=== PATIENT | male | born 1990 | race Caucasian/White ===

== ENCOUNTER 2017-08-08 14:37 | Emergency (ER) | payer OTHER ==
[~2017-08-08] VITALS: Ht 175.2 cm; Wt 68.0 kg
[~2017-08-08 14:37] MED LIST: CIPROFLOXACIN500 MG PO; CYCLOBENZAPRINE10 MG PO; LAMICTAL100 MG PO; Motrin,Rufen800 MG PO; TOPAMAX200 MG PO; VIBRAMYCIN100 MG PO; VICODIN 5/500 505 MG PO; ZOFRAN ODT4 MG SL
[2017-08-08 14:46] VITALS: BP 114/66
[2017-08-08] MEDS ORDERED: CEFADROXIL500 M1 PO (14:55)
[2017-08-08] MEDS ORDERED: ANAPROX DS550 MG PO (14:55)
[2017-08-08] MEDS ORDERED: BACTRIM DS PO (14:55)
== END 2017-08-08 17:01 | disposition home or self-care (01) ==
LOC: ED 14:37
DX: S60.561A Insect bite (nonvenomous) of right hand, initial encounter (principal); L08.9 Local infection of the skin and subcutaneous tissue, unspecified; W57.XXXA Bitten or stung by nonvenomous insect and other nonvenomous arthropods, initial encounter; Y93.89 Activity, other specified; Y92.89 Other specified places as the place of occurrence of the external cause; Y99.8 Other external cause status; Z79.899 Other long term (current) drug therapy

== ENCOUNTER 2017-08-27 13:08 | Inpatient (IN) | payer OTHER ==
[~2017-08-27] VITALS: Ht 177.8 cm; Wt 66.5 kg
[~2017-08-27 13:08] MED LIST changes: +ANAPROX DS550 MG PO; +BACTRIM DS PO; +CEFADROXIL500 M1 PO
[2017-08-27 16:00] VITALS: BP 106/59
--- NOTE | 2017-08-28 12:15 | NUR ---
26 year old MALE admitted to room # 530 for stabilization. Reports an addiction to IV HEROIN last used 22 hours prior to admission. Compliant with admission procedure. ASSESSMENT COMPLETE. SKIN INTACT WITH NO WOUNDS. REFUSING FLU VACCINATION. WILL VERIFY [facility] MEDICATIONS WITH [facility].
[2017-08-28 12:30] VITALS: BP 115/71
--- NOTE | 2017-08-28 13:30 | NUR ---
CALLED DR DOWNS AND INFORMED HIM THAT PTS HOME MEDICATIONS WERE VERIFIED WITH THE PHARMACIST AT [facility]. I EXPLAINED THAT PT HAS A HX OF SEIZURES AND STOPPED TAKING HIE ANTICONVULSANTS 3 MONTHS AGO. PT STATES HIS LAST SEIZURE WAS OCTOBER 2016. NO NEW ORDERS.
[2017-08-28 13:50] LABS: BASO # 0.1 10*3/uL (0.0-0.1); BASO % 0.7 % (0.0-1.0); EOS # 0.4 10*3/uL (0.0-0.4); EOS % 5.1 % (1.0-4.0); HEMATOCRIT 43.5 % (42.0-52.0); HEMOGLOBIN 14.4 g/dl (14.0-18.0); LYMPH # 2.1 10*3/uL (1.3-4.4); LYMPH % 29.3 % (27.0-41.0); MEAN CORPUSCULAR HGB 30.1 pg (27.0-31.0); MEAN CORPUSCULAR HGB CONC 33.1 g/dl (33.0-37.0); MEAN PLATELET VOLUME 10.8 fl (9.6-12.3); MONO # 0.4 10*3/uL (0.1-1.0); MONO % 5.5 % (3.0-9.0); NEUT # 4.3 10*3/uL (2.3-7.9); NEUT % 59.3 % (47.0-73.0); PLATELET COUNT AUTOMATED 249 10*3/uL (130-400); RED BLOOD COUNT 4.78 10*6/uL (4.50-5.90); RED CELL DISTRI WIDTH 14.6 % (0-14.5); WHITE BLOOD COUNT 7.2 10*3/uL (4.8-10.8)
[2017-08-28 14:04] LABS: ALBUMIN 3.8 gm/dl (3.1-4.5); ALKALINE PHOSPHATASE 88 U/L (45-117); BUN 9 mg/dl (7-24); CHLORIDE 105 mmol/L (98-107); CREATININE 0.76 mg/dL (0.70-1.30); POTASSIUM 4.1 mmol/L (3.5-5.1); SGOT/AST 37 IU/L (3-35); SGPT/ALT 66 U/L (12-78); SODIUM 140 mmol/L (136-145); TOTAL PROTEIN 7.1 gm/dL (6.4-8.2)
[2017-08-28 14:05] LABS: BILIRUBIN NEGATIVE (NEGATIVE); BLOOD NEGATIVE (NEGATIVE); CLARITY CLEAR (CLEAR); COLOR YELLOW (YELLOW); GLUCOSE NEGATIVE (NEGATIVE); KETONE NEGATIVE (NEGATIVE); LEUKO ESTERASE NEGATIVE (NEGATIVE); NITRITE NEGATIVE (NEGATIVE); PH 8.5 (5.0-9.0); SPECIFIC GRAVITY 1.015 (1.005-1.030)
[2017-08-28 14:09] LABS: ETHYL ALCOHOL < 3.0 mg/dl (<3)
[2017-08-28 14:11] LABS: URINE AMPHETAMINES < 1000 (1000ng/ml); URINE BARBITURATES < 200 (200ng/ml); URINE BENZODIAZEPINES < 200 (200ng/ml); URINE CANNABINOIDS (THC) < 50 (50ng/ml); URINE COCAINE < 300 (300ng/ml); URINE METHADONE < 300 (300ng/ml); URINE OPIATES < 300 (300ng/ml)
[2017-08-28 14:14] LABS: URINE PHENCYCLIDINE < 25 (25ng/ml)
[2017-08-28 14:24] LABS: MUCOUS TRACE; RBC 0-2 rbc/hpf (0-2); WBC 0-2 wbc/hpf (0-5)
[2017-08-28 16:00] VITALS: BP 112/67
[2017-08-29] VITALS: BP 103/58
--- NOTE | 2017-08-29 00:58 | NUR ---
PATIENT RESTING IN BED WATCHING TV. NO SIGNS OR SYMPTOMS OF DISTRESS NOTED. DENIES COMPLAINTS OF PAIN OR DISCOMFORT. WILL CONTINUE TO MONITOR. CALL LIGHT IN REACH.
[2017-08-29 08:00] VITALS: BP 100/69
--- NOTE | 2017-08-29 10:21 | NUR ---
REQUIP 0.5 MG AND ROBAXIN 750 MG GIVEN FOR C/O RESTLESS, ACHY LEGS.PT VOICES NO OTHER S/S OF WITHDRAWAL AT THIS TIME.RESPS EASY ON RA ,SPO2 1OO%.STABLE AT THIS TIME. CALL LIGHT IN REACH.
--- NOTE | 2017-08-29 14:09 | NUR ---
Patient resting. Responding to scheduled medications with fewer complaints of pain and anxiety.
--- NOTE | 2017-08-29 14:14 | NUR ---
BENTYL GIVEN PER PT REQUEST FOR STOMACH CRAMPS.
[2017-08-29 16:00] VITALS: BP 99/51
--- NOTE | 2017-08-29 22:18 | NUR ---
PATIENT RESTING IN BED ON IPAD. DENEIES COMPLAINTS OF PAIN OR DISCOMFORT. WILL CONTINUE TO MONITOR. CALL LIGHT IN REACH.
[2017-08-30] VITALS: BP 103/53
--- NOTE | 2017-08-30 07:56 | NUR ---
PT IN BED, WATCHING TV. PT DENIES ANY CHEST PAIN, SOB, NAUSEA, VOMITING, DIARRHEA, MUSCLE CRAMPS/SPASMS AT THIS TIME. LUNGS DIMINISHED WITH NO EDEMA NOTED.
[2017-08-30 08:00] VITALS: BP 92/48
--- NOTE | 2017-08-30 10:05 | NUR ---
PT UP, AMBULATING IN ROOM. DENIES N/V/D. REQUESTED MEDICATION FOR RESTLESS LEGS. SEE MAR.
--- NOTE | 2017-08-30 10:54 | NUR ---
D/C PLANNING: PATIENT WILL FOLLOW UP WITH [facility] FOR HIS AFTERCARE PLAN. KIMBERLY HENRY B.A. INTAKE CORRDINATOR
--- NOTE | 2017-08-30 11:01 | NUR ---
PER PT, REQUIP WAS EFFECTIVE FOR RESTLESS LEGS.
--- NOTE | 2017-08-30 13:39 | NUR ---
PT IN BED, AMBULATING WITHIN ROOM.
[2017-08-30 16:00] VITALS: BP 97/49
--- NOTE | 2017-08-30 17:30 | NUR ---
PT IN BED, WATCHING TV. PT DENIES PAIN OF ANY KIND, DENIES N/V/D. LUNGS CLEAR AND DIMINISHED. NO EDEMA NOTED. TOLERATED MEDICATION WELL DURING ADMIN.
[2017-08-30 20:00] VITALS: BP 111/55
--- NOTE | 2017-08-30 22:05 | NUR ---
Nurse asked patient if he needed any PRN medications and he said "no, I don't need anything."
[2017-08-31] VITALS: BP 105/60
--- NOTE | 2017-08-31 01:40 | NUR ---
24 HR chart check completed.
--- NOTE | 2017-08-31 06:11 | NUR ---
Asked patient again if he needed any PRN medications and he said "no,I don't need anything right now."
[2017-08-31 06:20] LABS: BASO # 0.1 10*3/uL (0.0-0.1); EOS # 0.8 10*3/uL (0.0-0.4); EOS % 13.3 % (1.0-4.0); HEMATOCRIT 38.1 % (42.0-52.0); HEMOGLOBIN 12.6 g/dl (14.0-18.0); LYMPH # 2.5 10*3/uL (1.3-4.4); LYMPH % 41.1 % (27.0-41.0); MEAN CELL VOLUME 92.3 fl (80.0-94.0); MEAN CORPUSCULAR HGB 30.5 pg (27.0-31.0); MEAN CORPUSCULAR HGB CONC 33.1 g/dl (33.0-37.0); MEAN PLATELET VOLUME 11.1 fl (9.6-12.3); MONO # 0.6 10*3/uL (0.1-1.0); MONO % 10.2 % (3.0-9.0); NEUT # 2.1 10*3/uL (2.3-7.9); NEUT % 34.2 % (47.0-73.0); PLATELET COUNT AUTOMATED 182 10*3/uL (130-400); RED BLOOD COUNT 4.13 10*6/uL (4.50-5.90); RED CELL DISTRI WIDTH 14.5 % (0-14.5); WHITE BLOOD COUNT 6.2 10*3/uL (4.8-10.8)
[2017-08-31 06:47] LABS: CREATININE 0.65 mg/dL (0.70-1.30)
[2017-08-31 08:00] VITALS: BP 116/72
[2017-08-31] MEDS ORDERED: ZOFRAN 4 MG ED2 TAB PO (09:50)
[2017-08-31] MEDS ORDERED: METHOCARBAMOL750 M1 PO (09:50)
[2017-08-31] MEDS ORDERED: ATARAX,VISTARIL50 MG PO (09:50)
--- NOTE | 2017-08-31 10:34 | NUR ---
Discharge instructions reviewed with patient/family. Patient receptive and verbalizes understanding. Follow-up care arranged. Written instructions given to patient/family. ANDERSON RODRIGUEZ
== END 2017-08-31 10:34 | disposition home or self-care (01) | DRG 897 ==
LOC: 4E 13:08 → 5E 08-28 11:07
PROVIDERS: Student in an Organized Health Care Education/Training Program; ADMIT Internal Medicine
DX: F11.23 Opioid dependence with withdrawal (principal); F41.9 Anxiety disorder, unspecified; G40.909 Epilepsy, unspecified, not intractable, without status epilepticus; G25.81 Restless legs syndrome; Z71.6 Tobacco abuse counseling; Z72.0 Tobacco use; Z91.14 Patient's other noncompliance with medication regimen; Z82.49 Family history of ischemic heart disease and other diseases of the circulatory system; Z79.899 Other long term (current) drug therapy

== ENCOUNTER 2017-11-28 13:50 | Inpatient (IN) | payer OTHER ==
[~2017-11-28] VITALS: Ht 175.3 cm; Wt 75.8 kg
[~2017-11-28 13:50] MED LIST changes: +ATARAX,VISTARIL50 MG PO; +METHOCARBAMOL750 M1 PO; +ZOFRAN 4 MG ED2 TAB PO
[2017-11-28 15:21] LABS: BASO # 0.1 10*3/uL (0.0-0.1); BASO % 0.6 % (0.0-1.0); EOS # 0.4 10*3/uL (0.0-0.4); EOS % 4.6 % (1.0-4.0); HEMATOCRIT 47.2 % (42.0-52.0); HEMOGLOBIN 15.8 g/dl (14.0-18.0); LYMPH # 2.3 10*3/uL (1.3-4.4); LYMPH % 29.3 % (27.0-41.0); MEAN CELL VOLUME 91.1 fl (80.0-94.0); MEAN CORPUSCULAR HGB 30.5 pg (27.0-31.0); MEAN CORPUSCULAR HGB CONC 33.5 g/dl (33.0-37.0); MEAN PLATELET VOLUME 10.7 fl (9.6-12.3); MONO # 0.7 10*3/uL (0.1-1.0); MONO % 8.5 % (3.0-9.0); NEUT # 4.5 10*3/uL (2.3-7.9); NEUT % 56.9 % (47.0-73.0); PLATELET COUNT AUTOMATED 281 10*3/uL (130-400); RED BLOOD COUNT 5.18 10*6/uL (4.50-5.90); RED CELL DISTRI WIDTH 13.2 % (0-14.5); WHITE BLOOD COUNT 7.9 10*3/uL (4.8-10.8)
[2017-11-28 15:36] LABS: ALKALINE PHOSPHATASE 99 U/L (45-117); BUN 13 mg/dl (7-24); CHLORIDE 104 mmol/L (98-107); CREATININE 0.89 mg/dL (0.70-1.30); POTASSIUM 3.9 mmol/L (3.5-5.1); SGOT/AST 192 IU/L (3-35); SGPT/ALT 520 U/L (12-78); SODIUM 140 mmol/L (136-145); TOTAL PROTEIN 7.5 gm/dL (6.4-8.2)
[2017-11-28 15:37] LABS: ETHYL ALCOHOL < 3.0 mg/dl (<3)
[2017-11-28 15:59] LABS: BILIRUBIN NEGATIVE (NEGATIVE); BLOOD NEGATIVE (NEGATIVE); CLARITY SL CLOUDY (CLEAR); COLOR YELLOW (YELLOW); GLUCOSE NEGATIVE (NEGATIVE); KETONE TRACE (NEGATIVE); LEUKO ESTERASE NEGATIVE (NEGATIVE); NITRITE NEGATIVE (NEGATIVE); SPECIFIC GRAVITY >= 1.030 (1.005-1.030)
[2017-11-28 16:00] VITALS: BP 115/64
[2017-11-28 16:07] LABS: BACTERIA TRACE; EPITHELIAL CELLS 0-2; MUCOUS TRACE; RBC 0-2 rbc/hpf (0-2); WBC 0-2 wbc/hpf (0-5)
[2017-11-28 16:09] LABS: URINE AMPHETAMINES < 1000 (1000ng/ml); URINE BARBITURATES < 200 (200ng/ml); URINE BENZODIAZEPINES < 200 (200ng/ml); URINE CANNABINOIDS (THC) < 50 (50ng/ml); URINE COCAINE > 300 (300ng/ml); URINE METHADONE < 300 (300ng/ml); URINE OPIATES < 300 (300ng/ml); URINE PHENCYCLIDINE < 25 (25ng/ml)
[2017-11-28 20:00] VITALS: BP 114/66
[2017-11-29] VITALS: BP 103/64
[2017-11-29 08:00] VITALS: BP 94/60
[2017-11-29 16:00] VITALS: BP 109/62
[2017-11-29 20:00] VITALS: BP 120/72
[2017-11-30] VITALS: BP 112/63
[2017-11-30 08:00] VITALS: BP 90/53
[2017-11-30] MEDS ORDERED: ATARAX,VISTARIL50 MG PO (12:18)
[2017-11-30 16:00] VITALS: BP 137/68
[2017-11-30 20:07] VITALS: BP 110/68
[2017-12-01] VITALS: BP 117/70
[2017-12-01 08:00] VITALS: BP 90/51
== END 2017-12-01 09:35 | disposition left against medical advice (07) | DRG 894 ==
LOC: 5E 13:50
PROVIDERS: Internal Medicine
DX: F11.23 Opioid dependence with withdrawal (principal); F14.10 Cocaine abuse, uncomplicated; G40.909 Epilepsy, unspecified, not intractable, without status epilepticus; R10.84 Generalized abdominal pain; R19.5 Other fecal abnormalities; Z53.21 Procedure and treatment not carried out due to patient leaving prior to being seen by health care provider; Z91.14 Patient's other noncompliance with medication regimen; Z82.49 Family history of ischemic heart disease and other diseases of the circulatory system

== ENCOUNTER 2018-02-09 11:53 | Inpatient (IN) | payer MEDICAID ==
[~2018-02-09] VITALS: Ht 175.3 cm; Wt 68.5 kg
[2018-02-09 11:57] VITALS: BP 110/57
[2018-02-09 12:19] LABS: BASO # 0.1 10*3/uL (0.0-0.1); BASO % 0.7 % (0.0-1.0); EOS # 0.4 10*3/uL (0.0-0.4); HEMATOCRIT 42.3 % (42.0-52.0); HEMOGLOBIN 14.6 g/dl (14.0-18.0); LYMPH # 3.2 10*3/uL (1.3-4.4); LYMPH % 35.3 % (27.0-41.0); MEAN CELL VOLUME 89.4 fl (80.0-94.0); MEAN CORPUSCULAR HGB 30.9 pg (27.0-31.0); MEAN CORPUSCULAR HGB CONC 34.5 g/dl (33.0-37.0); MEAN PLATELET VOLUME 10.2 fl (9.6-12.3); MONO # 0.5 10*3/uL (0.1-1.0); MONO % 5.7 % (3.0-9.0); NEUT # 4.9 10*3/uL (2.3-7.9); NEUT % 54.2 % (47.0-73.0); PLATELET COUNT AUTOMATED 269 10*3/uL (130-400); RED BLOOD COUNT 4.73 10*6/uL (4.50-5.90); RED CELL DISTRI WIDTH 12.6 % (0-14.5)
[2018-02-09 12:37] LABS: ALBUMIN 4.1 gm/dl (3.1-4.5); ALKALINE PHOSPHATASE 77 U/L (45-117); BUN 10 mg/dl (7-24); CHLORIDE 101 mmol/L (98-107); CREATININE 0.76 mg/dL (0.70-1.30); POTASSIUM 3.6 mmol/L (3.5-5.1); SGOT/AST 74 IU/L (3-35); SGPT/ALT 141 U/L (12-78); SODIUM 137 mmol/L (136-145); TOTAL PROTEIN 7.5 gm/dL (6.4-8.2)
[2018-02-09 12:43] LABS: ETHYL ALCOHOL < 3.0 mg/dl (<3); TROPONIN I < 0.015 ng/ml (<0.045)
[2018-02-09 12:44] LABS: ACETAMINOPHEN (TYLENOL) < 2.0 ug/ml (10-30)
[2018-02-09 12:57] LABS: BILIRUBIN NEGATIVE (NEGATIVE); BLOOD NEGATIVE (NEGATIVE); CLARITY CLEAR (CLEAR); COLOR YELLOW (YELLOW); GLUCOSE NEGATIVE (NEGATIVE); KETONE NEGATIVE (NEGATIVE); LEUKO ESTERASE NEGATIVE (NEGATIVE); NITRITE NEGATIVE (NEGATIVE); PH 5.5 (5.0-9.0); UROBILINOGEN 0.2 E.U./dl (0.2-1.0)
[2018-02-09 13:04] LABS: URINE AMPHETAMINES < 1000 (1000ng/ml); URINE BARBITURATES < 200 (200ng/ml); URINE BENZODIAZEPINES < 200 (200ng/ml); URINE CANNABINOIDS (THC) < 50 (50ng/ml); URINE COCAINE > 300 (300ng/ml); URINE METHADONE < 300 (300ng/ml); URINE OPIATES > 300 (300ng/ml)
[2018-02-09 13:08] LABS: URINE PHENCYCLIDINE < 25 (25ng/ml)
[2018-02-09 13:20] LABS: MUCOUS 2+; WBC 0-2 wbc/hpf (0-5)
[2018-02-09 13:52] VITALS: BP 99/57
[2018-02-09 14:15] VITALS: BP 106/67
[2018-02-09 16:00] VITALS: BP 107/64
[2018-02-09 20:00] VITALS: BP 129/74
[2018-02-10] VITALS: BP 119/56
[2018-02-10 08:00] VITALS: BP 85/55
[2018-02-10 16:00] VITALS: BP 96/53
[2018-02-10 20:00] VITALS: BP 117/52
[2018-02-10] MEDS ORDERED: TOPAMAX200 MG PO (23:16)
[2018-02-10] MEDS ORDERED: LAMICTAL100 MG PO (23:16)
[2018-02-11] VITALS: BP 104/57; BP 160/62
[2018-02-11 04:00] VITALS: BP 109/59
[2018-02-11 08:00] VITALS: BP 89/55
[2018-02-11 12:00] VITALS: BP 89/46
[2018-02-11 20:00] VITALS: BP 96/52
[2018-02-12] VITALS: BP 96/56
[2018-02-12 06:21] LABS: BASO # 0.1 10*3/uL (0.0-0.1); BASO % 0.9 % (0.0-1.0); EOS # 0.9 10*3/uL (0.0-0.4); EOS % 9.8 % (1.0-4.0); HEMATOCRIT 41.9 % (42.0-52.0); HEMOGLOBIN 13.9 g/dl (14.0-18.0); LYMPH # 3.7 10*3/uL (1.3-4.4); LYMPH % 42.3 % (27.0-41.0); MEAN CELL VOLUME 92.7 fl (80.0-94.0); MEAN CORPUSCULAR HGB 30.8 pg (27.0-31.0); MEAN CORPUSCULAR HGB CONC 33.2 g/dl (33.0-37.0); MEAN PLATELET VOLUME 10.9 fl (9.6-12.3); MONO # 0.6 10*3/uL (0.1-1.0); MONO % 7.2 % (3.0-9.0); NEUT # 3.5 10*3/uL (2.3-7.9); NEUT % 39.5 % (47.0-73.0); PLATELET COUNT AUTOMATED 260 10*3/uL (130-400); RED BLOOD COUNT 4.52 10*6/uL (4.50-5.90); RED CELL DISTRI WIDTH 12.7 % (0-14.5); WHITE BLOOD COUNT 8.8 10*3/uL (4.8-10.8)
[2018-02-12 06:43] LABS: CREATININE 0.98 mg/dL (0.70-1.30)
[2018-02-12 08:00] VITALS: BP 92/53
[2018-02-12] MEDS ORDERED: ATARAX,VISTARIL50 MG PO (11:08)
[2018-02-12] MEDS ORDERED: ZOFRAN 4 MG ED2 TAB PO (11:08)
== END 2018-02-12 11:52 | disposition home or self-care (01) | DRG 897 ==
LOC: ED 11:53 → 5E 13:18 → EDHOLD 13:18 → 5E 13:55
PROVIDERS: Internal Medicine; Nurse Practitioner Family
DX: F11.23 Opioid dependence with withdrawal (principal); F14.10 Cocaine abuse, uncomplicated; G40.909 Epilepsy, unspecified, not intractable, without status epilepticus; Z72.0 Tobacco use; Z71.6 Tobacco abuse counseling; Z79.899 Other long term (current) drug therapy; Z82.49 Family history of ischemic heart disease and other diseases of the circulatory system

== ENCOUNTER 2018-03-17 13:42 | Emergency (ER) | payer OTHER ==
[~2018-03-17] VITALS: Ht 172.7 cm; Wt 72.6 kg
[2018-03-17 14:30] VITALS: BP 122/66
[2018-03-17 15:28] LABS: BASO % 0.3 % (0.0-1.0); EOS # 0.1 10*3/uL (0.0-0.4); EOS % 1.1 % (1.0-4.0); HEMATOCRIT 42.9 % (42.0-52.0); HEMOGLOBIN 14.4 g/dl (14.0-18.0); LYMPH # 1.6 10*3/uL (1.3-4.4); LYMPH % 12.1 % (27.0-41.0); MEAN CELL VOLUME 89.2 fl (80.0-94.0); MEAN CORPUSCULAR HGB 29.9 pg (27.0-31.0); MEAN CORPUSCULAR HGB CONC 33.6 g/dl (33.0-37.0); MEAN PLATELET VOLUME 10.6 fl (9.6-12.3); MONO % 7.7 % (3.0-9.0); NEUT # 10.4 10*3/uL (2.3-7.9); NEUT % 78.4 % (47.0-73.0); PLATELET COUNT AUTOMATED 275 10*3/uL (130-400); RED BLOOD COUNT 4.81 10*6/uL (4.50-5.90); RED CELL DISTRI WIDTH 12.1 % (0-14.5); WHITE BLOOD COUNT 13.2 10*3/uL (4.8-10.8)
[2018-03-17 15:37] LABS: ACT PARTIAL THROMBO TIME 22.7 SECONDS (20.8-31.5)
[2018-03-17 15:42] LABS: ALBUMIN 3.5 gm/dl (3.1-4.5); ALKALINE PHOSPHATASE 62 U/L (45-117); BUN 8 mg/dl (7-24); CHLORIDE 108 mmol/L (98-107); POTASSIUM 3.7 mmol/L (3.5-5.1); SGOT/AST 51 IU/L (3-35); SGPT/ALT 66 U/L (12-78); SODIUM 139 mmol/L (136-145); TOTAL PROTEIN 7.3 gm/dL (6.4-8.2)
== END 2018-03-17 16:14 | disposition short-term general hospital (02) ==
LOC: ED 13:42
PROVIDERS: Physician Assistant
DX: S02.11GA Other fracture of occiput, right side, initial encounter for closed fracture (principal); S06.5X0A Traumatic subdural hemorrhage without loss of consciousness, initial encounter; S06.6X0A Traumatic subarachnoid hemorrhage without loss of consciousness, initial encounter; W18.39XA Other fall on same level, initial encounter; Y93.89 Activity, other specified; Y92.89 Other specified places as the place of occurrence of the external cause; Y99.8 Other external cause status

== ENCOUNTER 2018-05-17 13:31 | Emergency (ER) | payer OTHER ==
[~2018-05-17] VITALS: Ht 167.6 cm; Wt 65.8 kg
[2018-05-17 13:36] VITALS: BP 134/80
[2018-05-17] MEDS ORDERED: NAPROSYN500 MG PO (14:07)
== END 2018-05-17 15:03 | disposition home or self-care (01) ==
LOC: ED 13:31
DX: S93.401A Sprain of unspecified ligament of right ankle, initial encounter (principal); R03.0 Elevated blood-pressure reading, without diagnosis of hypertension; W19.XXXA Unspecified fall, initial encounter; Y93.89 Activity, other specified; Y92.89 Other specified places as the place of occurrence of the external cause; Y99.8 Other external cause status

== ENCOUNTER 2022-12-27 22:58 | Emergency (ER) | payer OTHER ==
[~2022-12-27] VITALS: Wt 99.8 kg
[~2022-12-27 22:58] MED LIST changes: +NAPROSYN500 MG PO
[2022-12-27 23:18] VITALS: BP 126/80
== END 2022-12-28 03:14 | disposition home or self-care (01) ==
LOC: ED 22:58
DX: S09.8XXA Other specified injuries of head, initial encounter (principal); F11.10 Opioid abuse, uncomplicated; Z72.0 Tobacco use; V89.2XXA Person injured in unspecified motor-vehicle accident, traffic, initial encounter; Y93.89 Activity, other specified; Y92.410 Unspecified street and highway as the place of occurrence of the external cause; Y99.8 Other external cause status

== ENCOUNTER 2023-10-19 12:36 | Emergency (ER) | payer OTHER ==
[~2023-10-19] VITALS: Ht 175.2 cm; Wt 72.6 kg
[2023-10-19 14:06] LABS: BASO % 0.2 % (0.0-1.0); EOS % 0.1 % (1.0-4.0); HEMATOCRIT 51.2 % (42.0-52.0); LYMPH # 2.1 10*3/uL (1.3-4.4); LYMPH % 12.6 % (27.0-41.0); MEAN CELL VOLUME 88.9 fl (80.0-94.0); MEAN CORPUSCULAR HGB 29.3 pg (27.0-31.0); MEAN PLATELET VOLUME 10.6 fl (9.6-12.3); MONO # 1.4 10*3/uL (0.1-1.0); NEUT # 13.3 10*3/uL (2.3-7.9); NEUT % 78.6 % (47.0-73.0); PLATELET COUNT AUTOMATED 282 10*3/uL (130-400); RED BLOOD COUNT 5.76 10*6/uL (4.50-5.90); RED CELL DISTRI WIDTH 12.4 % (0-14.5); WHITE BLOOD COUNT 16.9 10*3/uL (4.8-10.8)
[2023-10-19 14:11] LABS: ACT PARTIAL THROMBO TIME 30.9 SECONDS (20.0-32.1)
[2023-10-19 14:42] LABS: ALKALINE PHOSPHATASE 61 U/L (46-116); BUN 8 mg/dl (9-23); CHLORIDE 101 mmol/L (98-107); LIPASE 27 U/L (12-53); POTASSIUM 4.1 mmol/L (3.4-5.1); SGPT/ALT 17 U/L (5-49); TOTAL PROTEIN 7.3 gm/dL (6.0-8.0)
[2023-10-19] MEDS ORDERED: CLEOCIN HCL150 MG PO (17:08)
[2023-10-19 18:31] LABS: URINE AMPHETAMINES Negative (1000ng/ml); URINE BARBITURATES Negative (200ng/ml); URINE BENZODIAZEPINES Negative (200ng/ml); URINE CANNABINOIDS (THC) Negative (50ng/ml); URINE COCAINE Positive (300ng/ml); URINE METHADONE Negative (300ng/ml); URINE OPIATES Negative (300ng/ml); URINE PHENCYCLIDINE Negative (25ng/ml)
== END 2023-10-19 17:50 | disposition home or self-care (01) ==
LOC: ED 12:36
PROVIDERS: Emergency Medicine
DX: L03.211 Cellulitis of face (principal); R10.2 Pelvic and perineal pain; Z79.899 Other long term (current) drug therapy

== ENCOUNTER 2024-03-25 09:33 | Emergency (ER) | payer OTHER ==
[~2024-03-25] VITALS: Ht 175.2 cm; Wt 81.6 kg
[~2024-03-25 09:33] MED LIST changes: +CLEOCIN HCL150 MG PO
[2024-03-25 09:58] VITALS: BP 108/64
[2024-03-25] MEDS ORDERED: Rabies Immune Globulin 300 UNIT/2 ML VIAL IM ONE ×2 (11:15→11:20)
[2024-03-25] MEDS ORDERED: Tdap Vaccine 0.5 ML SYR (Adult Vaccine) IM ONE (11:15)
[2024-03-25] MEDS ORDERED: Rabies Vaccine 1 ML VIAL IM ONE (11:15)
[2024-03-25] MEDS ORDERED: Rabies Immune Globulin 150O UNIT/10 ML IM ONE (11:20)
[2024-03-25] MEDS ORDERED: AMOX-CLAV 875-1 EACH PO (12:04)
== END 2024-03-25 12:09 | disposition home or self-care (01) ==
LOC: ED 09:33
DX: S51.852A Open bite of left forearm, initial encounter (principal); Z87.891 Personal history of nicotine dependence; W54.0XXA Bitten by dog, initial encounter; Y93.89 Activity, other specified; Y92.89 Other specified places as the place of occurrence of the external cause; Y99.8 Other external cause status

== ENCOUNTER 2024-04-26 09:04 | Emergency (ER) | payer OTHER ==
[~2024-04-26 09:04] MED LIST changes: +AMOX-CLAV 875-1 EACH PO
[2024-04-26 09:15] VITALS: BP 122/67
[2024-04-26 09:24] LABS: BILIRUBIN Negative (Negative); BLOOD Negative (Negative); CLARITY Clear (Clear); COLOR Yellow (Yellow); GLUCOSE Negative (Negative); KETONE Trace (Negative); LEUKO ESTERASE Trace (Negative); NITRITE Negative (Negative); PH 6.5 (4.5-8.0); SPECIFIC GRAVITY >= 1.030 (1.001-1.030)
[2024-04-26 09:32] LABS: URINE AMPHETAMINES Negative (1000ng/ml); URINE BARBITURATES Negative (200ng/ml); URINE BENZODIAZEPINES Negative (200ng/ml); URINE CANNABINOIDS (THC) Negative (50ng/ml); URINE COCAINE Positive (300ng/ml); URINE METHADONE Negative (300ng/ml); URINE OPIATES Negative (300ng/ml); URINE PHENCYCLIDINE Negative (25ng/ml)
[2024-04-26 09:33] LABS: BACTERIA TRACE; EPITHELIAL CELLS 0-2; MUCOUS 2+
[2024-04-26 10:00] LABS: BASO % 0.4 % (0.0-1.0); EOS % 0.2 % (1.0-4.0); LYMPH # 2.1 10*3/uL (1.3-4.4); LYMPH % 21.8 % (27.0-41.0); MEAN CELL VOLUME 87.6 fl (80.0-94.0); MEAN CORPUSCULAR HGB 29.5 pg (27.0-31.0); MEAN CORPUSCULAR HGB CONC 33.7 g/dl (33.0-37.0); MEAN PLATELET VOLUME 10.7 fl (9.6-12.3); MONO # 0.7 10*3/uL (0.1-1.0); MONO % 7.3 % (3.0-9.0); NEUT # 6.8 10*3/uL (2.3-7.9); NEUT % 70.1 % (47.0-73.0); PLATELET COUNT AUTOMATED 251 10*3/uL (130-400); RED BLOOD COUNT 5.25 10*6/uL (4.50-5.90); RED CELL DISTRI WIDTH 13.2 % (0-14.5); WHITE BLOOD COUNT 9.7 10*3/uL (4.8-10.8)
[2024-04-26 10:21] LABS: ALKALINE PHOSPHATASE 53 U/L (46-116); BUN 12 mg/dl (9-23); CHLORIDE 108 mmol/L (98-107); POTASSIUM 3.2 mmol/L (3.4-5.1); SGPT/ALT 21 U/L (5-49); TOTAL PROTEIN 6.8 gm/dL (6.0-8.0)
[2024-04-26 10:22] LABS: ETHYL ALCOHOL < 3.0 mg/dl (<3)
== END 2024-04-26 11:20 | disposition left against medical advice (07) ==
LOC: ED 09:04
PROVIDERS: Internal Medicine
DX: F22 Delusional disorders (principal); Z53.29 Procedure and treatment not carried out because of patient's decision for other reasons; F19.10 Other psychoactive substance abuse, uncomplicated; Z72.0 Tobacco use